=== PATIENT | male | born 1945 | race Caucasian/White ===

== ENCOUNTER 2017-07-27 04:23 | Emergency (ER) | payer OTHER ==
[2017-07-27] MEDS ORDERED: LIDOCAINE 2% JELLY 20 ML (UROJECT) ONE (04:28)
[2017-07-27] MEDS ORDERED: LIDOCAINE 2% JELLY 20 ML (UROJECT) UR ONE (04:30)
--- NOTE | 2017-07-27 05:06 | EDPHY ---
H & P HPI/ROS: HPI CHIEF COMPLAINT: Urinary retention, can't urinate HISTORY OF PRESENT ILLNESS: This patient very pleasant 72-year-old male, he lives at [facility] and has a history of BPH. He presents emergency room with abdominal distention and lower abdominal pain and unable to urinate since midnight. On exam he is tender over suprapubic region and appears to have a palpable large bladder. He denies chest pain or shortness of breath. He had a Etienne removed today at [facility] according to the patient he has a chronic indwelling Etienne. They are unable to give Etienne back in. And he arrives to the emergency room. Denies fever back pain. Denies chest pain or shortness of breath. Past Medical History: BPH, chronic indwelling Etienne, urinary retention, hypertension, sleep apnea, history of alcoholism, gout Past Surgical History: No recent surgery Social History: Denies daily use of drugs alcohol tobacco products. Resides at [facility]. Family History: Noncontributory. ROS REVIEW OF SYSTEMS: A comprehensive 10 point review of systems is otherwise negative aside from elements mentioned in the history of present illness. Exam Constitutional triage nursing summary reviewed, vital signs reviewed, awake/ alert. Eyes normal conjunctivae and sclera, EOMI, PERRLA. HENT normal inspection, atraumatic, moist mucus membranes, no epistaxis, neck supple/ no meningismus, no raccoon eyes. Respiratory clear to auscultation bilaterally, normal breath sounds, no respiratory distress, no wheezing. Cardiovascular rate normal, regular rhythm, no murmur, no edema, distal pulses normal. Gastrointestinal mild tenderness palpation over the suprapubic region, palpable abdominal distention of the bladder, no rebound, no guarding, normal bowel sounds, no distension, no pulsatile mass. Genitourinary no CVA tenderness. Musculoskeletal no midline vertebral tenderness, full range of motion, no calf swelling, no tenderness of extremities, no meningismus, good pulses, neurovascularly intact. Skin pink, warm, & dry, no rash, skin atraumatic. Neurologic awake, alert and oriented x 3, AAOx3, moves all 4 extremities equally, motor intact, sensory intact, CN II-XII intact, normal cerebellar, normal vision, normal speech. Psychiatric normal mood/affect. Heme/Lymph/Immune no lymphadenopathy. Differential Diagnosis: Includes but is not limited to in a particular order urinary retention, need for Etienne catheter, urinary tract infection Medical Decision Making: Plan for this patient he needs relief of his urinary retention will place Etienne catheter. Will check UA. Recommend leaving Etienne catheter in and he will go home with this follow up with Urology. : 0506: Etienne catheter has been placed and is currently draining 400 cc at this time. 0542: Patient is now comfortable. Abdomen nondistended. Urine output was good to fully. Urine culture sent. He is on antibiotics but cannot tell me what antibiotic it is. His urine does not appear overtly infected has whites and reds but this could be from chronic indwelling Etienne. Recommend close follow-up with urology. Return if any worsening symptoms questions concerns. Go home with Etienne. Source: Patient, EMS Constitutional: Initial Vital Signs Temperature (C) 36.9 C 07/27/17 04:30 Heart Rate 84 07/27/17 04:30 Respiratory Rate 18 07/27/17 04:30 Blood Pressure 131/74 H 07/27/17 04:30 O2 Sat (%) 93 07/27/17 04:30 O2 Delivery Mode Room Air Allergies/Adverse Reactions: No Known Allergies Allergy (Unverified 07/27/17 05:01) Home Medications: Medication Instructions Recorded Flomax 0.4 MG (*) 07/27/17 Lisinopril 07/27/17 amLODIPine BESYLATE [Norvasc 5 mg 07/27/17 (*)] Medical Decision Making - Data Points Laboratory Results: 07/27/17 04:45 Urine Color YELLOW Urine Appearance HAZY Urine pH 5.0 (5.0-7.5) Ur Specific [place] 1.015 (1.002-1.030) Urine Protein 1+ H (NEGATIVE) Urine Ketones NEGATIVE (NEGATIVE) Urine Blood 3+ H (NEGATIVE) Urine Nitrate NEGATIVE (NEGATIVE) Urine Bilirubin NEGATIVE (NEGATIVE) Urine Urobilinogen NEGATIVE EU EU (0.2-1.0) Ur Leukocyte Esterase TRACE H (NEGATIVE) Urine RBC 50-182 /hpf H /hpf (0-3) Urine WBC 25-50 /hpf H /hpf (0-3) Ur Epithelial Cells TRACE /lpf /lpf (NONE-1+) Urine Mucus TRACE /lpf /lpf (NONE-1+) Urine Glucose NEGATIVE (NEGATIVE) Departure - Departure Disposition: Home, Routine, Self-Care Clinical Impression: Urinary obstruction Condition: Good Instructions: Urinary Retention in Men (ED) Additional Instructions: 1. Follow up with Urology. 2. Return emergency room if develops worsening symptoms questions or concerns. Referrals: SANDOR HELMS [Other] - As per Instructions Asya Lake MD [Medical Doctor] - As per Instructions
[2017-07-27 05:18] LABS: COLOR YELLOW; LEUKOCYTE ESTERASE,URINE TRACE (NEGATIVE); NITRITE,URINE NEGATIVE (NEGATIVE)
[2017-07-27 05:30] LABS: MUCUS TRACE /lpf (NONE-1+); RBC,URINE 50-182 /hpf (0-3); WBC,URINE 25-50 /hpf (0-3)
[2017-07-27 07:19] VITALS: BP 145/76; PULSE 75; RESP 15; TEMP 97.5; O2SAT 94
== END 2017-07-27 07:19 | disposition home or self-care (01) ==
DX: N13.9 Obstructive and reflux uropathy, unspecified (principal)

== ENCOUNTER 2017-11-18 12:02 | Emergency (ER) | payer OTHER ==
[2017-11-18 12:12] VITALS: RESP 18
--- NOTE | 2017-11-18 12:55 | EDPHY ---
HPI/HX/ROS/PE/MDM Narrative: CHIEF COMPLAINT: Head injury secondary to fall HPI: The patient is a 72 y/o male arriving via EMS after hitting his head secondary to falling today. He was walking to the bus stop when he became tired, lost his balance, and hit his head on the sidewalk. Currently he has no head or neck pain. Normally uses a cane to ambulate. No loss of consciousness. No paresthesias, numbness, chest pain, abdominal pain, fever. He denies any preceding symptoms. REVIEW OF SYSTEMS: Aside from elements discussed in the HPI, a comprehensive 10-point review of systems was reviewed and is negative. PMH: Hypertension, gout, alcoholism SOCIAL HISTORY: Lives in [place], single, retired PHYSICAL EXAM: General: Patient is alert, in no acute distress. Head: Left forehead abrasion. ENT: Eyes are normal to inspection. ENT inspection normal. Neck: Normal inspection. Full range of motion. Respiratory: No respiratory distress. Breath sounds normal bilaterally. Cardiovascular: Regular rate and rhythm. Strong peripheral pulses. Normal cap refill. Abdomen: The abdomen is nontender to palpation. There are no peritoneal signs. There are normal bowel sounds. Back: Normal to inspection. No tenderness to palpation. Skin: Normal color. No rash. Warm and dry. Extremities: Normal appearance. Full range of motion. Neuro: Oriented x3. Normal motor function. Normal sensory function. ED Course: 1400: I reviewed patient's head CT, there is no acute injury. Patient's symptoms are consistent with a head injury and forehead abrasion. 1418: Spoke with Dr. Van, radiologist, patient's head CT is normal. 1430: Reassessed patient and discussed imaging findings. Return precautions provided; patient is comfortable with this plan. MDM: This patient presents with what he is pretty clear is a mechanical fall with minor head injury. CTH is negative and there are no other complaints or signs of trauma. He would like to be discharged. - Data Points Imaging: Discussed imaging studies w/ call center support consultant Radiologist, I viewed and interpreted images myself General Time Seen by Provider: 11/18/17 12:52 Initial Vital Signs: Initial Vital Signs Temperature (C) 36.6 C 11/18/17 12:10 Heart Rate 100 11/18/17 12:10 Respiratory Rate 18 11/18/17 12:10 Blood Pressure 141/94 H 11/18/17 12:10 O2 Sat (%) 93 11/18/17 12:10 O2 Delivery Mode Room Air Allergies/Adverse Reactions: No Known Allergies Allergy (Unverified 07/27/17 05:01) Home Medications: Medication Instructions Recorded Flomax 0.4 MG (*) 07/27/17 Lisinopril 07/27/17 amLODIPine BESYLATE [Norvasc 5 mg 07/27/17 (*)] Aspirin 81mg (*) 11/18/17 Cipro 11/18/17 Departure - Departure Disposition: Home, Routine, Self-Care Clinical Impression: Head injury, Forehead abrasion Condition: Good Instructions: Head Injury (ED), Abrasion (ED) Additional Instructions: Follow-up with your primary doctor within 72 hours. Return to the Emergency Department for severe headache, vomiting, vision changes, confusion, fever or other concerns. Referrals: Janae Slater MD [[facility] [place]] - As per Instructions [facility],. [Clinic] - As per Instructions Report Scribed for: Sharath Dumont Report Scribed by: Mago Orlando Date of Report: 11/18/17 Time of Report: 12:54 Physician Review and Approval Statement: Portions of this note were transcribed by an ED scribe. I personally performed the history, physical exam, and medical decision making; and confirm the accuracy of the information in the transcribed note.
[2017-11-18 14:44] VITALS: BP 137/85; PULSE 78; TEMP 98.1; O2SAT 95
--- NOTE | 2017-11-18 18:02 | ASDISCHSUM ---
Discharge Information Plan Status:SNF Medically Cleared to Leave: Discharge Date:11/18/2017 02:45 PM D/C Disposition:[facility] ADT D/C Disposition:Home, Routine, Self-Care Projected Discharge Date:11/18/2017 02:45 PM Transportation at D/C:Bus Ticket Discharge Delay Reason: Follow-Up Date:11/18/2017 02:45 PM Discharge Slot: Final Diagnosis: Placement Information Patient Contact Information Contact Name:KARLA Relationship:Life Partner Address: Work Phone: City:[place] Alternate Phone: [facility]/Zip Code:[place] Email: Financial Information Financial Class:HMO and PPO Plans Primary Plan Desc:[facility] Primary Plan Number:[id number] Secondary Plan Desc: Secondary Plan Number: Assessment Information [facility] Progress Note CM Note CM Note Notes: Pt presented to ED via EMS after having a mechanical fall and hitting his head. Pt was across the street from [facility], where he is a resident. Pt was going to get on a bus to [place] or [place] (?) to meet up with his significant other, Nicolasa ([phone]), at her rental property there. ED RN Reyna contacted Nicolasa and notified her of pt being in the ED. Nicolasa unable to pick pt up if discharged. Spoke w/Verena at [facility] and she faxed over pt's PMH and med list to the ED. Per Verena, pt is [employer] and is allowed to sign himself out of the facility, which he did this morning and he had plans on returning by 9pm tonight. Verena aware of patient's fall and hitting his head. Verena states that per policy, pt should return to so they can monitor/observe him and do neuro checks every 2 hours. This CM spoke with pt and discussed him returning to . Patient refusing to return to until 9pm tonight and is requesting assistance with transportation. Spoke with Verena and she states pt does have the right to refuse to return at this time. Per ED RN and MD, pt ambulating independently safely with cane and ok to dc w/bus pass. Pt provided bus pass. CM available for further assistance if needed. Date Signed: 11/18/2017 05:07 PM Electronically Signed By:Lita Bowen RN LACE LACE Acuity / Level of Answers: No Care: Did the patient have an inpatient admission? Comorbidities - select Answers: Cerebrovascular disease all that apply (CVA, TIA, aneurysms, vasc ular dementia) History of falls # of Emergency department Answers: 1-2 visits in the last 6 months Social determinants Answers: History of substance abuse (ETOH, street drugs, prescription drugs, etc.) Score: 8 Date Signed: 11/18/2017 05:12 PM Electronically Signed By:Lita Bowen RN Intervention Information Intervention Type:Bus Pass Date of Service:11/18/2017 05:12 PM Patient Type:Emergency Room Staff Member:DANUTA Bowen [place] Hours:0.25 Discipline:Soft Sugar Supervisor Severity: Comment: Intervention Type:Post Acute Communication Date of Service:11/18/2017 05:12 PM Patient Type:Emergency Room Staff Member:DANUTA Bowen [place] Hours:0.5 Discipline:Soft Sugar Supervisor Severity: Comment:Spoke with Uticasaul Menard
== END 2017-11-18 14:45 | disposition home or self-care (01) ==
LOC: EDUNIT#
DX: S09.90XA Unspecified injury of head, initial encounter (principal); S00.81XA Abrasion of other part of head, initial encounter; I10 Essential (primary) hypertension; Z79.82 Long term (current) use of aspirin; W01.198A Fall on same level from slipping, tripping and stumbling with subsequent striking against other object, initial encounter; Y92.521 Bus station as the place of occurrence of the external cause; Y93.01 Activity, walking, marching and hiking